=== PATIENT | male | born 1945 | race Caucasian/White ===

== ENCOUNTER 2018-10-01 09:27 | Inpatient (IN) | payer OTHER ==
[~2018-10-01] VITALS: Ht 182.9 cm; Wt 92.3 kg
[~2018-10-01 09:27] MED LIST: AMBIEN 5 MG TABL5 M1 PO; ASPIR 8181 MG PO; B-12500 MCG PO; CATAPRES0.1 MG PO; COLACE100 MG PO; COZAAR 25 MG TA25 M1 PO; DEPAKOTE ER500 MG PO; ERGOCALCIF50000 UNIT PO; FOLIC ACID1 MG PO; LORAZEPAM 22 MG/1 ML IV PUSH; MOBIC15 MG PO; PANTOPRAZOLE SO40 M1 PO; PRENATAL PO; ROCEPHIN 11 GM/1001 IV; TYLENOL325 MG PO; VITAMIN B-1100 M2 PO; ZOCOR20 MG PO
[2018-10-01 09:28] VITALS: BP 163/96
[2018-10-01 10:07] LABS: URINE BILIRUBIN NEGATIVE (Negative); URINE BLOOD 3+ (Negative); URINE CLARITY CLEAR; URINE COLOR YELLOW; URINE GLUCOSE-RANDOM* NEGATIVE (Negative); URINE KETONES 1+ (Negative); URINE LEUKOCYTES-REFLEX NEGATIVE (Negative); URINE NITRITE-REFLEX NEGATIVE (Negative); URINE PROTEIN (DIPSTICK) 2+ (Negative); URINE SPECIFIC GRAVITY 1.025 (1.005-1.035); URINE UROBILINOGEN 0.2 E.U./dl (0.2-1.0)
[2018-10-01 10:12] LABS: SQUAMOUS None Seen /LPF (0-3); URINE WBC-REFLEX 6-15 Few /HPF (0-5)
[2018-10-01 10:13] LABS: BACTERIA-REFLEX 1-9 Few /HPF (None Seen); CASTS None Seen /LPF (None Seen); CRYSTALS None Seen /LPF (None Seen); URINE RBC >20 Many /HPF (0-2)
[2018-10-01 10:16] LABS: AMP/METHAMP Negative (Negative); BARBITURATES Negative (Negative); BENZODIAZEPINES Negative (Negative); COCAINE Negative (Negative); METHADONE Negative (Negative); OPIATES Negative (Negative); PCP Negative (Negative)
[2018-10-01 10:22] LABS: ABSOLUTE NEUTROPHILS 9.6 thou/uL (1.4-8.2); BASOPHILS 0.2 % (0.0-2.0); HEMATOCRIT 47.3 % (42.0-52.0); HEMOGLOBIN 16.3 gm/dL (14.0-18.0); LYMPHOCYTES 8.3 % (24.0-44.0); MCH 31.8 pg (26.0-34.0); MCHC 34.4 g/dL (28.0-37.0); MCV 92.6 fL (80.0-100.0); MONOCYTES 7.2 % (1.0-8.0); PLATELET COUNT 172 thou/uL (150-400); POLYS 84.3 % (36.0-66.0); RBC 5.11 mil/uL (4.50-6.00); RDW 15.8 % (10.5-14.5); WBC 11.4 thou/uL (4.0-11.0)
[2018-10-01 10:32] LABS: ANION GAP 9 mmol/L (7-16); BUN 18 mg/dL (7-18); CALCIUM 9.7 mg/dL (8.5-10.1); CHLORIDE 97 mmol/L (98-107); CO2 26 mmol/L (21-32); CREATININE 1.2 mg/dL (0.7-1.3); GLUCOSE 151 mg/dL (74-106); POTASSIUM 4.8 mmol/L (3.5-5.1); SODIUM 132 mmol/L (136-145)
[2018-10-01 10:41] LABS: ALBUMIN 4.3 g/dL (3.4-5.0); SGOT 26 U/L (15-37); SGPT 30 U/L (30-65); TOTAL BILIRUBIN 0.6 mg/dL (<0.1-1.0); TOTAL PROTEIN 8.2 g/dL (6.4-8.2); TROPONIN-I <0.06 ng/mL (<0.06)
[2018-10-01 11:48] VITALS: BP 165/100
[2018-10-01 12:44] VITALS: BP 158/93
[2018-10-01 13:22] VITALS: BP 182/93
--- NOTE | 2018-10-01 14:19 | NUR ---
ASSESSMENT-PT MOVED INTO [facility] [place] [facility] ABOUT 2 MONTHS AGO. PT DRIVES. HE USES A FWW ABOUT 50% OF THE TIME. PT DOES HIS OWN ADLS. PT NORMALLY GOES TO THE DINING AREA FOR MEALS. PT DRIVES UP TO THE [employer] AND SON SAYS HE DOES HAVE SOME DRINKS THERE. PT HAS HAD [facility] IN THE PAST. PT HAS DECREASED SHORT TERM MEMORY BUT [employer] CLAIMS TAKER MEMORY PER SON. PT HAS BEEN STRAIGHT CATHING HIMSELF FOR AROUND 25 YRS. PT DOES FURNITURE WALK WITHIN THE APT. SON SAYS HE WENT TO PT'S APT THIS AM TO TAKE HIM TO A APT AT AND FOUND HIS DAD VEY CONFUSED, HAD POOPED IN A BOX INTHE KITCHEN ETC. FOLLOWING TO ASSIST WITH DC PLANNING.
[2018-10-01 17:40] VITALS: BP 190/95
--- NOTE | 2018-10-01 19:00 | NUR ---
PT RECEIVED FROM THE ER AT 1300 ALERT BUT VERY CONFUSED AND AGITATED. PT TRYING TO GET OUT OF BED SEVERAL TIMES. UP TO THE BSC W/ ASSIST. FOR SOFT BM'S. PT ABD DISTENDED AND FIRM. PULLED OUT IV. POOR APPETITE BUT DRINKING WATER WHEN OFFERED. SON HERE ON ADMISSION AND ABLE TO PROVIDE INFORMATION. PT MONITORED CLOSELY.
[2018-10-01 23:11] VITALS: BP 153/85
--- NOTE | 2018-10-02 04:30 | NUR ---
ASSUMED PT CARE 1899. PT ALERT TO SELF, CONFUSED AND INPULSIVE- SITTER IN ROOM. PT SLEPT FOR MOST OF THE EVENING. FREQURNT REDIRECTION AND REORIENTATION. VSS. PT PULLED IV, NEW IV STARTED- DRESSING C/D/I, NO SIGNS OF INFITLRATION. NAVARRO ADVANCED, NEW STAT LOCK PLACED- DRAINING WELL, BLOOD TINGED URINE. WILL CONTINUE TO MONITOR. WILL CONTINUE POC UNTIL EOS.
[2018-10-02 11:30] LABS: HEMATOCRIT 38.8 % (42.0-52.0); HEMOGLOBIN 13.2 gm/dL (14.0-18.0); MCH 31.9 pg (26.0-34.0); MCHC 34.1 g/dL (28.0-37.0); MCV 93.5 fL (80.0-100.0); RBC 4.15 mil/uL (4.50-6.00); RDW 15.8 % (10.5-14.5); WBC 9.4 thou/uL (4.0-11.0)
--- NOTE | 2018-10-02 16:19 | NUR ---
Assumed pt care at 7am.Sitter at bs at the shift change.Assessment completed. vss.Pt more alert and oriented today and cooperative with care.Sitter dc'd this am .No restlessness and agitation noted.Pt fed self at breakfast and lunch and tolerated meds.Son here and updates given.Bed alarm in use at alltimes.Dr Sarah here and order noted.No verbal c/o or discomfort.Will continue to monitor.
[2018-10-02 16:55] VITALS: BP 125/63
[2018-10-02 21:20] VITALS: BP 131/63
[2018-10-03 04:10] VITALS: BP 132/72
[2018-10-03 04:21] LABS: CALCIUM 8.1 mg/dL (8.5-10.1); CREATININE 0.9 mg/dL (0.7-1.3); POTASSIUM 4.2 mmol/L (3.5-5.1)
--- NOTE | 2018-10-03 05:10 | NUR ---
A/O. Bed rest for most of the shift. Around 0200, patient tired to get out of the bed without calling. patient told the staff he wanted to see if he could still walk, voicing that he normally used a walker. With the walker, the patient walked in the hallway for about 8 minutes, steady with stand by assist; patient oriented to place, person and time. calm and cooperative. vss, afebrile.
[2018-10-03 08:37] VITALS: BP 148/75
--- NOTE | 2018-10-03 13:21 | EKG ---
[address] [place] [address] ELECTROCARDIOGRAM REPORT Name: VAL ARCE Room #: 429-P ADM IN M.R.#: [id number] ������������������ Admission: 10/01/18 ������������������ Attend Phys: Tolu Virgen MD Discharge: ������������������ Date of : 43 Report #: [id number] ����������������������������������������������������������������� [id number] THIS REPORT FOR: //name// [facility] ED Test Date: 2018-10-01 Test Time: 10:55:19 Pat Name: VAL ARCE Department: Room: 429 Gender: M Supervisor [employer]: HERBIE : 1945 Requested By: James Kaur Order Number: [id number] MD: Cesar Donald Measurements Intervals [place] Rate: 91 P: 36 MD: 152 QRS: -24 QRSD: 136 T: -13 QT: 383 QTc: 472 Interpretive Statements Sinus rhythm Right bundle branch block Inferior myocardial infarction, age indeterminate Compared to ECG 06/05/2017 19:23:47 Right bundle-branch block now present Sinus tachycardia no longer present Electronically Signed On 10-03-2018 13:21:02 CDT by Cesar Donald [email or web address] ��������������������������������������������� <ELECTRONICALLY SIGNED> ���������������������������������������� By: Cesar Donald MD, [facility] ��������������������������������������������� 10/03/18 1321 1055 1055 Cesar Donald MD, [facility] /EPI
[2018-10-03 16:42] VITALS: BP 153/82
--- NOTE | 2018-10-03 16:57 | NUR ---
ASSUMED CARE THIS AM, SHIFT ASSESSMENT DONE, VSS. DENIES ANY PAIN. NAVARRO IN PLACE. MENTATION MUCH BETTER COMPARED TO LAST SHIFT, A&O*4. SITTING IN THE CHAIR THIS AM. HAD A BM THIS SHIFT. WILL CONTINUE TO ASSESS AND ASSIST WITH ADLs NEEDED.
[2018-10-03 19:50] VITALS: BP 159/79
[2018-10-04 04:52] VITALS: BP 154/75
--- NOTE | 2018-10-04 05:19 | NUR ---
ASSESMENT COMPLETED.PT AXO X4 AT START OF SHIFT.PT CALM,PLEASANT AND COOPERATIVE WITH CARE.NAVARRO TO DD/RETENSION.VSS.PT CONT ON IVF ORDERED.PT STATED THAT HE FEELS MUCH BETTER THAN HE DID WHEN HE FIRST GOT HERE.PT RESTING ON HIOS BED AT THIS TIME.CALL LIGHT WITHIN REACH.
[2018-10-04 07:40] VITALS: BP 162/82
[2018-10-04 11:54] LABS: CALCIUM 8.5 mg/dL (8.5-10.1); CREATININE 0.9 mg/dL (0.7-1.3)
[2018-10-04 11:57] LABS: HEMATOCRIT 38.1 % (42.0-52.0); MCHC 34.2 g/dL (28.0-37.0); MCV 93.6 fL (80.0-100.0); RBC 4.07 mil/uL (4.50-6.00); RDW 15.8 % (10.5-14.5); WBC 5.3 thou/uL (4.0-11.0)
[2018-10-04] MEDS ORDERED: LEVAQUIN 500 M500 M2 PO (12:26)
[2018-10-04 15:18] VITALS: BP 162/82
--- NOTE | 2018-10-04 15:19 | NUR ---
ON-GOING ASSESSMENT: CM REVIEWED CHART AND MET WITH PATIENT AT THE BEDSIDE. PHYSICAL THERAPY RECOMMENDING HH FOR PATIENT. CM NOTIFIED PATIENT AND HE PREFERS TO USE [facility] WHICH HE HAD IN THE PAST. CM NOTIFIED [facility] WHO STATES THEY CAN ACCEPT HIM FOR HH SERVICES. JOVANNI VERIFIED WITH PATIENT AND HE REPORTS HIS PCP IS DR. JOSE RAFAEL FOSTER. JOVANNI NOTIFIED BEDSIDE RN AND HE IS CALLING PATIENTS SON WHO IS TO [employer] OPERATOR ASSISTANT PATIENT.
[2018-10-04 15:30] VITALS: BP 162/82
== END 2018-10-04 16:41 | disposition home health service (06) | DRG 689 ==
LOC: ER 09:27 → 4E 11:13 → EROBS 11:13 → 4E 12:57 → ENTRNSPT 10-04 16:21 → 4E 10-04 16:41
PROVIDERS: Emergency Medicine; Internal Medicine; ADMIT Internal Medicine
DX: N39.0 Urinary tract infection, site not specified (principal); G93.41 Metabolic encephalopathy; E87.1 Hypo-osmolality and hyponatremia; F41.9 Anxiety disorder, unspecified; F03.90 Unspecified dementia, unspecified severity, without behavioral disturbance, psychotic disturbance, mood disturbance, and anxiety; I10 Essential (primary) hypertension; G40.909 Epilepsy, unspecified, not intractable, without status epilepticus; G47.00 Insomnia, unspecified; R33.9 Retention of urine, unspecified; E53.8 Deficiency of other specified B group vitamins; B95.8 Unspecified staphylococcus as the cause of diseases classified elsewhere; Z85.51 Personal history of malignant neoplasm of bladder; Z86.73 Personal history of transient ischemic attack (TIA), and cerebral infarction without residual deficits; Z88.0 Allergy status to penicillin; Z88.8 Allergy status to other drugs, medicaments and biological substances; Z79.899 Other long term (current) drug therapy; Z91.030 Bee allergy status; Z79.82 Long term (current) use of aspirin; Z87.891 Personal history of nicotine dependence
CPT/HCPCS: 10084